=== PATIENT | male | born 1935 | race Caucasian/White ===

== ENCOUNTER 2017-06-03 09:26 | Emergency (ER) | payer MEDICARE, SELFPAY ==
[2017-06-03 09:27] VITALS: BP 154/71; PULSE 64; RESP 24; TEMP 36.3; O2SAT 97; BMI 32.2
--- NOTE | 2017-06-03 09:30 | EKG12_ITS ---
Test Reason : CP Blood Pressure : / mmHG Vent. Rate : 062 BPM Atrial Rate : 062 BPM P-R Int : 240 ms QRS Dur : 080 ms QT Int : 462 ms P-R-T Axes : 052 -13 038 degrees QTc Int : 468 ms Sinus rhythm with 1st degree A-V block Otherwise normal ECG Confirmed by DEMARCUS OLIVER, HILARY ([id number]), communications editor GEOVANY LINDER ([id number]) on 06/06/2017 2:22:15 PM Referred By: RAJENDRA/SANDEEP Confirmed By:HILARY TRACY MD
--- NOTE | 2017-06-03 09:30 | RAD_ITS ---
STUDY: X-RAY CHEST REASON FOR EXAM: Male, 82 years old. Chest pain and shortness of breath. TECHNIQUE: Single AP portable view of the chest. COMPARISON: Comparison is made with prior study dated September 30, 2014. FINDINGS: EKG electrodes are seen. Hyperinflation. Stable mild increased linear markings at the lung bases suggestive of scarring. There is no demonstrated pleural abnormality. Normal size heart. Normal mediastinum and marcio. Normal visualized pulmonary arteries. There is atherosclerotic calcification of the aortic arch with tortuosity. There are diffuse degenerative changes of the visualized thoracic spine. Degenerative changes of the right acromioclavicular joint. There is no demonstrated abnormality of the visualized soft tissue structures of the upper abdomen. RAD/Chest 1 View (Portable) IMPRESSION: Hyperinflation. Findings suggest a mild degree of bibasilar linear scarring. Electronically Signed: Beau Archer MD at 9:56 EDT Tel [phone], Service support ,
[2017-06-03 09:48] LABS: Absolute Neutrophil Count 4.8 X10^3/uL (2.0-7.7); Basophil# 0.02 X10^3/uL; Basophil% 0.3 % (0-1); Eosinophil# 0.14 X10^3/uL; Eosinophils% 1.9 % (0-5); Hematocrit 36.3 % (40-54); Hemoglobin 12.6 g/dl (13.0-16.5); Lymphocyte % 24.2 % (19-41); Mean Corp Hgb Conc 34.7 g/gl (32-36); Mean Corpuscular Hgb 31.6 pg (27.0-32.0); Mean Platelet Vol. 9.3 fl (6.2-12.0); Monocyte# 0.72 X10^3/uL; Monocyte% 9.7 % (0-10); Neutrophil # 4.75 X10^3/uL (2.7-7.7); Neutrophil % 63.6 % (47-70); POSITIVE COUNT NO; POSITIVE DIFFERENTIAL NO; POSITIVE MORPHOLOGY NO; Platelet Count 158 K/mm3 (150-450); RBC Distribution Width CV 13.4 % (11.6-14.6); Red Blood Count 3.99 M/mm3 (4.6-6.2); White Blood Count 7.5 K/mm3 (4.4-11.0)
[2017-06-03 09:56] LABS: Anion Gap 7 (5-15); BUN 24 mg/dL (7-18); BUN/Creat Ratio 20.3 RATIO (10-20); Calcium,Total 8.9 mg/dL (8.5-10.1); Chloride 99 mmol/L (98-107); Creatinine, Serum 1.18 mg/dL (0.70-1.30); EST Glomerular Filtration Rate 63 mL/min (>60); Est Glom Filt Rate - Afr Amer 76 mL/min (>60); Glucose 157 mg/dL (74-106); Potassium 3.2 mmol/L (3.5-5.1); Sodium Level 135 mmol/L (136-145)
--- NOTE | 2017-06-03 10:02 | ED.RN ---
DR DUNCAN OFFICE CONTACTED FOR A MEDICATION LIST WITH DOSAGES AND FREQUENCY
--- NOTE | 2017-06-03 10:52 | ED.VISSUMM ---
- ER Visit Summary Date of Service: 06/03/17 Chief Complaint: Lower chest pain History of Present Illness: The patient is a 82 M of CAD, one cardiac stent, [id number] diabetes. For the last 2 days patient has had brief episodes lasting only seconds of left lower chest pain. No radiation. No radiation of his abdomen or back nor to his left arm or neck no associated shortness of breath. Often comes on at rest. Not associated with exertion. No hemoptysis. No pleuritic in nature. No history of DVT or PE. No recent travel, surgery or hospital admission. No leg pain or swelling. He was sent over from the surgery clinic I was called by their physician salon shampoo assistant. Physical Examination: Very well appearing older male. Vital signs are stable afebrile. Pulse ox 97% room air no signs of hypoxia. Currently is pain-free and symptom-free. HEENT exam unremarkable. Neck nontender no JVD. Lungs clear to auscultation bilaterally. Heart rate rate and rhythm no murmur. Rate about 60. Chest wall nontender. No ecchymosis or bruising. Abdomen is soft and nontender. Normal bowel sounds no peritoneal signs. No pulsatile mass. Extremities moving all 4. Calves are nontender without edema. Neurologically is awake and alert moving all 4 extremities. Back exam nontender. Test Results: Patient underwent a cardiac workup even no clinically I do not suspect this to be cardiac etiology. His chest x-ray showed chronic changes no acute process also read by the radiologist. EKG is a sinus rhythm rate is 62 with a first-degree AV block but no signs of MD or ischemia. White count of 7. H&H 12 and 36 and he does have a baseline anemia. Electrolytes unremarkable. BUN 24 creatinine 1.1. Normal gap. Troponin is normal. Emergency Department Course and Treatment: Patient underwent a cardiac workup. This is very brief episodes of discomfort. It is not intense. He has had episodes while he was here. His abdomen is benign. He is comfortable and wants to be discharged to home. I do not feel he needs any further workup. Again his abdomen is nontender and benign. Treatment Plan: Return if feeling worse. Follow-up his primary care physician as needed. Disposition: Discharge Impression: Atypical left upper extremity intermittent chest pain of uncertain etiology. This note was generated with [employer] software. It may contain incorrect words, spelling, and punctuation that were not noted in review of the chart prior to signing ED Disposition - Plan for ED Patient: Chief Complaint: Chest Pain Referrals: Moises Smart MD [Primary Care Provider] -
--- NOTE | 2017-06-03 10:55 | ED.DCSUM_ITS ---
- ER Visit Summary Date of Service: 06/03/17 Chief Complaint: Lower chest pain History of Present Illness: The patient is a 82 M of CAD, one cardiac stent, non -insulin-dependent diabetes. For the last 2 days patient has had brief episodes lasting only seconds of left lower chest pain. No radiation. No radiation of his abdomen or back nor to his left arm or neck no associated shortness of breath. Often comes on at rest. Not associated with exertion. No hemoptysis. No pleuritic in nature. No history of DVT or PE. No recent travel, surgery or hospital admission. No leg pain or swelling. He was sent over from the surgery clinic I was called by their physician psychology assistant. Physical Examination: Very well appearing older male. Vital signs are stable afebrile. Pulse ox 97% room air no signs of hypoxia. Currently is pain-free and symptom-free. HEENT exam unremarkable. Neck nontender no JVD. Lungs clear to auscultation bilaterally. Heart rate rate and rhythm no murmur. Rate about 60. Chest wall nontender. No ecchymosis or bruising. Abdomen is soft and nontender. Normal bowel sounds no peritoneal signs. No pulsatile mass. Extremities moving all 4. Calves are nontender without edema. Neurologically is awake and alert moving all 4 extremities. Back exam nontender. Test Results: Patient underwent a cardiac workup even no clinically I do not suspect this to be cardiac etiology. His chest x-ray showed chronic changes no acute process also read by the radiologist. EKG is a sinus rhythm rate is 62 with a first-degree AV block but no signs of WI or ischemia. White count of 7. H&H 12 and 36 and he does have a baseline anemia. Electrolytes unremarkable. BUN 24 creatinine 1.1. Normal gap. Troponin is normal. Emergency Department Course and Treatment: Patient underwent a cardiac workup. This is very brief episodes of discomfort. It is not intense. He has had episodes while he was here. His abdomen is benign. He is comfortable and wants to be discharged to home. I do not feel he needs any further workup. Again his abdomen is nontender and benign. Treatment Plan: Return if feeling worse. Follow-up his primary care physician as needed. Disposition: Discharge Impression: Atypical left upper extremity intermittent chest pain of uncertain etiology. This note was generated with [employer] software. It may contain incorrect words, spelling, and punctuation that were not noted in review of the chart prior to signing ED Disposition - Plan for ED Patient: Chief Complaint: Chest Pain Referrals: Moises Smart MD [Primary Care Provider] -
--- NOTE | 2017-06-03 10:55 | ED.DEP ---
ED Disposition - Plan for ED Patient: Disposition: Home or Assisted Living Chief Complaint: Chest Pain Instructions: ED Chest Pain Atypical Unkn Cause Referrals: Moises Smart MD [Primary Care Provider] - 3-5 Days if not improving Additional Instructions: All your tests were normal today. Follow-up your primary care physician and return to the ER if feeling worse.
[2017-06-03 10:58] VITALS: BP 148/64; PULSE 53; RESP 15; O2SAT 97
== END 2017-06-03 11:01 | disposition home or self-care (01) ==
PROVIDERS: Emergency Provider Emergency Medicine; Family Provider Family Medicine; PCP Family Medicine
DX: R07.89 Other chest pain (principal); K21.9 Gastro-esophageal reflux disease without esophagitis; I25.10 Atherosclerotic heart disease of native coronary artery without angina pectoris; E11.9 Type 2 diabetes mellitus without complications; I44.0 Atrioventricular block, first degree; D64.9 Anemia, unspecified; Z79.84 Long term (current) use of oral hypoglycemic drugs; Z79.82 Long term (current) use of aspirin; Z79.899 Other long term (current) drug therapy; Z95.5 Presence of coronary angioplasty implant and graft
CPT/HCPCS: 71045; 80048; 84484; 85025; 93005; 99285; A4216

== ENCOUNTER 2017-11-24 19:03 | Emergency (ER) | payer MEDICARE, SELFPAY ==
[2017-11-24 19:04] VITALS: BP 141/68; PULSE 75; RESP 16; TEMP 36.4; O2SAT 92; BMI 30.7
--- NOTE | 2017-11-24 19:13 | CT_ITS ---
STUDY: CT BRAIN WITHOUT CONTRAST REASON FOR EXAM: Male, 82 years old. Fall, hit back of head RADIATION DOSAGE (If Supplied By Facility): CTDIvol = ( 44.99 ) mGy, DLP = ( 829.85 ) mGycm TECHNIQUE: Transaxial CT imaging of the brain was performed without administration of intravenous contrast material. Individualized dose optimization techniques were used for this CT. COMPARISON: None. FINDINGS: Normal soft tissue structures. Normal calvarium. There is mild cerebral atrophy with widening of the extra-axial spaces and ventricular dilatation. There are areas of decreased attenuation within the white matter tracts of the supratentorial brain, consistent with microvascular disease changes. Area of diminished density of the right temporal lobe with calcification in the right middle cerebral artery territory compatible with old infarction. Normal basal ganglia and thalami. Normal brainstem. Normal cerebellum. There is no intracranial hemorrhage. There are no findings of an acute ischemic infarction. Normal visualized paranasal sinuses. There is atherosclerosis of the carotid siphons and vertebral arteries. CT/Brain/Head without Contrast IMPRESSION: 1. No acute intracranial hemorrhage or mass effect. 2. 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 3. Central parenchymal volume loss. White matter changes that are nonspecific but most commonly associated with chronic small vessel ischemic disease. Electronically Signed: Mehdi Maurice MD at 19:50 EDT , Service support ,
--- NOTE | 2017-11-24 19:16 | ED.DCSUM_ITS ---
- ER Visit Summary Date of Service: 11/24/17 Chief Complaint: Fall History of Present Illness: The patient is a 82 M presents to the emergency department after mechanical fall. Patient states that he was in his garage. He was trying to start his leaf blower and it would not start. He states he turned around to put it back and lost his balance. He fell onto the ground. He struck his head but did not lose consciousness. He also struck his lumbar spine. The patient does take Eliquis. He was able to get up. He has been having some increasing pain in his back. It does not radiate down his legs. He denies any problems of bowel or bladder. He was still able to ambulate with his cane. Physical Examination: Vital signs reviewed General: Well-nourished, well-developed Head: Normocephalic, atraumatic Eyes: Pupils equal and reactive, extraocular muscles intact Neck, supple, no lymphadenopathy Heart: Regular rate and rhythm Respiratory: No distress, clear bilaterally Abdomen: Soft, nontender, nondistended, no peritoneal signs Back: Mild tenderness in the lumbar area without step-off or deformity r Extremities: Nontender, no edema, no cords Skin: Normal color no rash Neuro: Alert and oriented, no focal or lateralizing deficits Test Results: [] Emergency Department Course and Treatment: The patient presents after mechanical fall. He is on Eliquis. I did obtain a head CT. This was unremarkable. The re is no evidence of bleeding or fracture. I also obtained lumbar x-rays which show chronic change. The patient was able to ambulate. At this time, I do feel it is safe for discharge. Family was counseled on concerning symptoms and reasons to return. Treatment Plan: [] Disposition: Discharge Impression: Mechanical fall This note was generated with [employer] dictation software. It may contain incorrect words, spelling, and punctuation that were not noted in review of the chart prior to signing ED Disposition - Plan for ED Patient: Disposition: Home or Assisted Living Chief Complaint: Fall Instructions: ED Mechanical Fall Referrals: Moises Smart MD [Primary Care Provider] -
[2017-11-24] MEDS: Acetaminophen 500 MG Tablet 1000 MG PO (19:22)
--- NOTE | 2017-11-24 19:40 | RAD_ITS ---
STUDY: X-RAY - LUMBAR SPINE REASON FOR EXAM: Male, 82 years old. Fell today, low back pain TECHNIQUE: 3 view(s) of the lumbar spine were obtained. COMPARISON: None FINDINGS: Normal lumbar lordosis. There is no substantial scoliosis. There is a normal alignment of the vertebrae. There is diffuse demineralization with multi-level endplate spondylosis. There is multi-level degenerative disc disease with multi-level disc space narrowing. Neurostimulator device noted. No compression fracture. There is atherosclerotic calcification of the abdominal aorta without a demonstrated aneurysm. Injection granuloma left buttock noted. RAD/Lumbar Spine 2 or 3 Views IMPRESSION: Sternum wearing no compression fracture demonstrated. Degenerative changes. Electronically Signed: Mehdi Maurice MD at 20:05 EDT , Service support ,
[2017-11-24 20:24] VITALS: BP 177/72; PULSE 70; RESP 16; O2SAT 94
--- NOTE | 2017-11-24 20:25 | ED.RN ---
REVIEWED D/C INSTRUCTIONS, FOLLOW UP CARE, AND S/S THAT WOULD WARRANT A RETURN TO THE ED WITH PT. PT VERBALIZED AN UNDERSTANDING AND DENIES FURTHER QUESTIONS FOR THIS RN. PT SKIN P/W/D, RESP EVEN AND UNLABORED, PT A&O X 3, NO DISTRESS NOTED. PT AMBULATED OUT OF ED, GAIT STEADY.
== END 2017-11-24 20:26 | disposition home or self-care (01) ==
PROVIDERS: Emergency Provider Emergency Medicine; Family Provider Family Medicine; PCP Family Medicine
DX: M54.9 Dorsalgia, unspecified (principal); W01.10XA Fall on same level from slipping, tripping and stumbling with subsequent striking against unspecified object, initial encounter; Y93.9 Activity, unspecified; Y92.008 Other place in unspecified non-institutional (private) residence as the place of occurrence of the external cause; Y99.9 Unspecified external cause status; R51 Headache; E11.9 Type 2 diabetes mellitus without complications; I10 Essential (primary) hypertension; Z79.01 Long term (current) use of anticoagulants; Z79.84 Long term (current) use of oral hypoglycemic drugs; Z79.82 Long term (current) use of aspirin; Z79.899 Other long term (current) drug therapy
CPT/HCPCS: 70450; 72100; 99283

== ENCOUNTER 2018-08-31 11:22 | Emergency (ER) | payer SELFPAY ==
[2018-08-31 11:23] VITALS: RESP 14; TEMP 36.8; BMI 33.8
--- NOTE | 2018-08-31 11:30 | RAD_ITS ---
STUDY: X-RAY - RIGHT SHOULDER REASON FOR EXAM: Male, 83 years old. Fall, pain TECHNIQUE: 2 view(s) of the shoulder. COMPARISON: None. FINDINGS: Mid shaft clavicle fracture, displaced, subluxed/overlapped by approximately 12 mm, comminution. Mild AC joint arthrosis, chronic. No significant degenerative features of the glenohumeral joint. Hemithoracic structures within the field of view exhibit no acute process. RAD/Shoulder min 2 Views IMPRESSION: Mid shaft clavicle fracture. Electronically Signed: Karsten Grimm MD at 12:38 EDT Tel , Service support ,
--- NOTE | 2018-08-31 11:30 | RAD_ITS ---
STUDY: X-RAY - RIGHT CLAVICLE REASON FOR EXAM: Male, 83 years old. Fall, pain TECHNIQUE: 2 view(s) of the clavicle. COMPARISON: None. FINDINGS: Displaced, comminuted midshaft clavicle fracture. Partially overlapping. Mild chronic AC joint arthrosis. Minimal degenerative features of the glenohumeral joint. RAD/Clavicle IMPRESSION: Mid shaft clavicle fracture. Electronically Signed: Karsten Grimm MD at 12:37 EDT Tel , Service support ,
[2018-08-31 11:32] VITALS: BP 187/79; PULSE 71; RESP 14; TEMP 36.8; O2SAT 96
[2018-08-31 11:45] VITALS: O2SAT 94
--- NOTE | 2018-08-31 11:48 | ED.DCSUM_ITS ---
History of Present Illness Chief Complaint: Fall Narrative: Patient presenting for evaluation secondary to a fall. Patient is currently on hospice care secondary to spinal cancer. Patient reports that he was in his bedroom and was turning around and suffered a fall where he fell and struck the back of his head. He denies loss of consciousness. He does report that he has a moderate amount of pain in his right shoulder worse with palpation and movement and suffered a laceration to the back of his head with bleeding that was controlled with pressure. Patient reports that he is on anticoagulants, but cannot recall which medication it is. He denies any visual changes numbness or weakness. He denies any nausea or vomiting. He denies any syncope associated with this fall, review of systems otherwise negative. Past Medical History - Allergies and Home Meds Allergies/Adverse Reactions: Allergies atorvastatin calcium [From Lipitor] Allergy (Verified 08/31/18 11:31) Chest tightness niacin [From Niaspan Extended-Release] Allergy (Verified 08/31/18 11:31) Chest tightness Penicillins Allergy (Verified 08/31/18 11:31) Hives carbamazepine [From Tegretol] Adverse Reaction (Verified 08/31/18 11:31) Other naproxen Adverse Reaction (Verified 08/31/18 11:31) Other simvastatin [From Zocor] Adverse Reaction (Verified 08/31/18 11:31) Pain in joints REDUCTASE INHIBITORS Adverse Reaction (Uncoded 11/24/17 19:06) Other Primary Care Physician: Moises Smart MD [Primary Care Provider] - Smoking Status: Former smoker Review of Systems All systems negative except as indicated Eyes: Denies: Visual changes - bilaterally ENT: Reports: - - Scalp laceration Cardiovascular: Denies: Chest pain Respiratory: Denies: Dyspnea Gastrointestinal: Denies: Nausea, Vomiting Musculoskeletal: Reports: - - Shoulder pain Neurological: Denies: Headache, Weakness, Parasthesia, Numbness Physical Exam Vital Signs/Narrative: Vital Signs Temp Pulse Resp BP Pulse Ox 08/31/18 11:45 94 08/31/18 11:32 98.2 F 71 14 187/79 H 96 08/31/18 11:23 98.2 F 14 General: - - Airways patent, breath sounds equal bilateral, central and peripheral pulses 2+ and symmetric. GCS 15 out of 15. Well-nourished well- developed age-appropriate male laying in the bed no acute distress Head: Normocephalic, - - Right sided occipital scalp laceration measuring approximately 2 cm in length Eyes: Perrl, EOMI Neck: Nontender, Full ROM Cardiovascular: Regular rate, Regular rhythm, No murmurs Respiratory: No distress, CTA bilaterally, Chest nontender Abdomen: Soft, Nontender, Nondistended, Normal bowel sounds Back: Nontender Extremeties: Patient has pain in the midshaft of his right clavicle with some crepitus with palpation of the area. Minimal pain with palpation of the lateral portion of the patient's right shoulder, but no pain with range of motion of the shoulder. Extremities are otherwise atraumatic. Skin: - - Laceration Neurological: Alert, Oriented x3, Cranial nerves II-XII grossly intact, Normal Strength, Normal Sensation Psychological: Normal affect Diagnostic/Tx/Re-eval - Medical Decision Making Patient presented secondary to fall. Patient is a DNR comfort care on hospice care, I do not believe that there is any utility in performing CT head or neck. Patient does have evidence of a clavicle fracture and x-ray confirmed this. No tenting of the skin, or evidence of open fracture patient will be placed in a sling and instructed to follow-up with orthopedics on-call. Patient's wound was addressed as noted in the procedure note. Patient tolerated this well. Patient will be discharged with outpatient follow-up with primary care and hospice will manage the patient's pain medications. Procedures - Lacerations No standard instances Comment: Patient's right occipital wound was anesthetized using 5 cc 1% lidocaine. Patient was scrubbed and irrigated with sterile saline. Wound was explored there is no evidence of foreign material. Skin stapler was then utilized, and 2 skin portillo were placed. There is good approximation of the wound patient tolerated this well. Disposition: Home ED Disposition - Plan for ED Patient: Disposition: Home or Assisted Living Diagnosis: Occipital scalp laceration, Right clavicle fracture Instructions: LACERATION, Scalp, FRACTURE, Clavicle Referrals: Moises Smart MD [Primary Care Provider] - 10-14 Days suture removal Alexandr Barr MD [STAFF PHYSICIAN] - 1-2 Weeks
[2018-08-31 13:36] VITALS: BP 163/75; PULSE 77; RESP 14; O2SAT 97
== END 2018-08-31 14:02 | disposition home or self-care (01) ==
PROVIDERS: Emergency Provider Emergency Medicine; Family Provider Family Medicine; PCP Family Medicine
DX: S42.021A Displaced fracture of shaft of right clavicle, initial encounter for closed fracture (principal); S01.01XA Laceration without foreign body of scalp, initial encounter; W01.10XA Fall on same level from slipping, tripping and stumbling with subsequent striking against unspecified object, initial encounter; Y93.9 Activity, unspecified; Y92.9 Unspecified place or not applicable; Y99.9 Unspecified external cause status; C41.2 Malignant neoplasm of vertebral column; Z79.01 Long term (current) use of anticoagulants; Z79.84 Long term (current) use of oral hypoglycemic drugs; Z79.899 Other long term (current) drug therapy; Z88.0 Allergy status to penicillin; Z88.6 Allergy status to analgesic agent; Z87.891 Personal history of nicotine dependence
CPT/HCPCS: 12001; 73000; 73030; 99284